=== PATIENT | female | born 1970 | race African-American/Black ===

== ENCOUNTER 2017-07-28 16:33 | Inpatient (IN) | payer MEDICAID, OTHER, SELFPAY ==
[2017-07-28 17:25] LABS: HEMATOCRIT 40.1 % (36.0-47.0); HEMOGLOBIN 14.1 g/dl (12.0-16.0); MEAN CORPUSCULAR HEMOGLOBIN 32.4 pg (27.0-33.0); MEAN CORPUSCULAR HGB CONC 35.2 g/dl (32.0-36.5); MEAN CORPUSCULAR VOLUME 92.2 fl (80.0-96.0); PLATELET COUNT, AUTOMATED 337 10^3/uL (150-450); RED BLOOD COUNT 4.35 10^6/uL (4.00-5.40); RED CELL DISTRIBUTION WIDTH 12.9 % (11.5-14.5); WHITE BLOOD COUNT 7.3 10^3/uL (4.0-10.0)
[2017-07-28] MEDS: HALOPERIDOL 5 MG/ML VIAL (J1630) IM (17:25)
[2017-07-28] MEDS: diphenhydrAMINE INJ 50MG/ML VIAL (J1200) IM (17:25)
[2017-07-28] MEDS: LORazepam 2 MG/ML VIAL (J2060) IM (17:25)
[2017-07-28 17:42] LABS: CONTROL LINE HCG INT CTR LINE PRESENT; HCG, SERUM QUALITATIVE NEGATIVE (NEGATIVE)
[2017-07-28 18:01] LABS: ALBUMIN 4.6 GM/DL (3.2-5.2); ALBUMIN/GLOBULIN RATIO 1.18 (1.00-1.93); ALKALINE PHOSPHATASE 56 U/L (45-117); ALT/SGPT 21 U/L (12-78); ANION GAP 14 MEQ/L (8-16); AST/SGOT 15 U/L (7-37); BILIRUBIN,DIRECT 0.2 MG/DL (0.0-0.2); BILIRUBIN,TOTAL 0.7 MG/DL (0.2-1.0); BLOOD UREA NITROGEN 7 MG/DL (7-18); CALCIUM LEVEL 10.2 MG/DL (8.5-10.1); CARBON DIOXIDE LEVEL 21 MEQ/L (21-32); CHLORIDE LEVEL 99 MEQ/L (98-107); CREATININE FOR GFR 0.85 MG/DL (0.55-1.30); ETHYL ALCOHOL (ETHANOL) < 0.003 % (0.000-0.010); GLOMERULAR FILTRATION RATE > 60.0 (>58); GLUCOSE, FASTING 120 MG/DL (70-100); POTASSIUM SERUM 4.1 MEQ/L (3.5-5.1); SALICYLATE LEVEL 3.5 MG/DL (5.0-30.0); SODIUM LEVEL 134 MEQ/L (136-145); TOTAL PROTEIN 8.5 GM/DL (6.4-8.2)
[2017-07-28 18:10] LABS: ACETAMINOPHEN LEVEL < 2.0 UG/ML (10.0-30.0)
[2017-07-28] MEDS: OLANZapine INTRAMUSCULAR 10 MG VIAL (S0166) IM (20:04)
[2017-07-28] MEDS ORDERED: MOM 30ML SUSPENSION UDC PO (23:30)
[2017-07-28] MEDS ORDERED: OLANZapine ORAL DISINTEGRATING TAB 5MG PO (23:30)
[2017-07-28] MEDS ORDERED: MAALOX 30 ML SUSP *UDC PO (23:30)
[2017-07-29] MEDS: ACETAMINOPHEN TAB 650MG DOSE (2X325MG) PO (09:07)
[2017-07-29] MEDS: traZODone 50 MG TAB PO (20:27)
[2017-07-30] MEDS: ACETAMINOPHEN TAB 650MG DOSE (2X325MG) PO (09:06)
[2017-07-30] MEDS: traZODone 50 MG TAB PO (23:33)
[2017-07-31] MEDS ORDERED: QUEtiapine FUMARATE 50 MG TAB PO (16:00)
[2017-08-01] MEDS ORDERED: ARIPiprazole 10 MG TAB NG (09:00)
== END 2017-07-31 15:30 | disposition home or self-care (01) | DRG 753 ==
LOC: M PSY 07-29 17:00 → M ED 16:33 → M ED INP 20:57 → M PSY 22:00
DX: F31.9 Bipolar disorder, unspecified (principal); Z79.899 Other long term (current) drug therapy; Z91.040 Latex allergy status

== ENCOUNTER → 2017-08-07 | Outpatient (REF) | payer MEDICAID ==
[2017-08-07 12:13] LABS: BASO # 0.1 10^3/uL (0.0-0.2); BASO % 1.5 % (0.0-1.0); EOS # 0.2 10^3/uL (0.0-0.50); EOS % 5.4 % (0.0-3.0); HEMATOCRIT 37.9 % (36.0-47.0); HEMOGLOBIN 12.4 g/dl (12.0-15.5); IMMATURE GRANULOCYTE % 0.2 % (0-3.0); LYMPH # 1.4 10^3/uL (1.5-4.5); LYMPH % 35.1 % (24.0-44.0); MEAN CORPUSCULAR HEMOGLOBIN 31.6 pg (27.0-33.0); MEAN CORPUSCULAR HGB CONC 32.7 g/dl (32.0-36.5); MEAN CORPUSCULAR VOLUME 96.4 fl (80.0-96.0); MONO # 0.3 10^3/uL (0.0-0.8); MONO % 6.9 % (0.0-5.0); NEUTROPHILS # 2.1 10^3/uL (1.8-7.7); NEUTROPHILS % 50.9 % (36.0-66.0); PLATELET COUNT, AUTOMATED 323 10^3/uL (150-450); RED BLOOD COUNT 3.93 10^6/uL (4.00-5.40); RED CELL DISTRIBUTION WIDTH 13.1 % (11.5-14.5); WHITE BLOOD COUNT 4.1 10^3/uL (4.0-10.0)
[2017-08-07 12:43] LABS: ALBUMIN/GLOBULIN RATIO 1.29 (1.00-1.93); ALKALINE PHOSPHATASE 46 U/L (45-117); ALT/SGPT 14 U/L (12-78); ANION GAP 7 MEQ/L (8-16); AST/SGOT 14 U/L (7-37); BILIRUBIN,TOTAL 0.7 MG/DL (0.2-1.0); BLOOD UREA NITROGEN 11 MG/DL (7-18); CALCIUM LEVEL 9.2 MG/DL (8.5-10.1); CARBON DIOXIDE LEVEL 27 MEQ/L (21-32); CHLORIDE LEVEL 105 MEQ/L (98-107); CHOLESTEROL LEVEL 245 MG/DL (<200); CREATININE FOR GFR 0.83 MG/DL (0.55-1.30); FERRITIN 32 NG/ML (8-252); GLOMERULAR FILTRATION RATE > 60.0 (>58); GLUCOSE, FASTING 80 MG/DL (70-100); HDL CHOLESTEROL 74 MG/DL (>40); IRON (FE) 95 UG/DL (50-170); NON-HDL-C 171 MG/DL; PERCENT SATURATION 33.7 % (13.2-45.0); POTASSIUM SERUM 4.3 MEQ/L (3.5-5.1); SODIUM LEVEL 139 MEQ/L (136-145); TOTAL IRON BINDING CAPACITY 282 UG/DL (250-450); TOTAL PROTEIN 7.1 GM/DL (6.4-8.2); TRIGLYCERIDES LEVEL 60 MG/DL (<150)
[2017-08-08 11:06] LABS: HEPATITIS B SURFACE ANTIGEN NEGATIVE (NEGATIVE)
[2017-08-08 11:21] LABS: HEPATITIS C VIRUS ABY INDEX < 0.0 INDEX (<0.8)
[2017-08-08 11:22] LABS: HIV 1&2 SCREEN CENTAUR NEGATIVE (NEGATIVE)
[2017-08-08 11:33] LABS: HEPATITIS B SURFACE ANTIBODY NEGATIVE (POSITIVE)
== END ==
LOC: M SFHCPLAZ 08:25
DX: D50.0 Iron deficiency anemia secondary to blood loss (chronic) (principal); Z13.220 Encounter for screening for lipoid disorders; F31.9 Bipolar disorder, unspecified; Z72.51 High risk heterosexual behavior

== ENCOUNTER → 2017-08-07 | Outpatient (CLI) | payer MEDICAID | LOC: M WHC 13:25 | DX: Z12.31 Encounter for screening mammogram for malignant neoplasm of breast (principal) ==

== ENCOUNTER → 2017-08-25 | Outpatient (REF) | payer MEDICAID ==
[2017-08-25 11:44] LABS: CHOLESTEROL LEVEL 261 MG/DL (<200); HDL CHOLESTEROL 97 MG/DL (>40); LDL CHOLESTEROL 147.2 MG/DL (<100); NON-HDL-C 164 MG/DL; TRIGLYCERIDES LEVEL 84 MG/DL (<150)
== END ==
LOC: M SFHCPLAZ 08:42
DX: Z13.220 Encounter for screening for lipoid disorders (principal)

== ENCOUNTER → 2017-10-28 | Outpatient (REF) | payer OTHER ==
[2017-10-28 10:28] LABS: BASO % 0.5 % (0.0-1.0); EOS # 0.3 10^3/uL (0.0-0.50); EOS % 3.6 % (0.0-3.0); HEMOGLOBIN 12.5 g/dl (12.0-15.5); IMMATURE GRANULOCYTE % 0.5 % (0-3.0); LYMPH # 1.5 10^3/uL (1.5-4.5); LYMPH % 20.5 % (24.0-44.0); MEAN CORPUSCULAR HEMOGLOBIN 31.8 pg (27.0-33.0); MEAN CORPUSCULAR HGB CONC 32.9 g/dl (32.0-36.5); MEAN CORPUSCULAR VOLUME 96.7 fl (80.0-96.0); MONO # 0.6 10^3/uL (0.0-0.8); MONO % 7.4 % (0.0-5.0); NEUTROPHILS # 5.1 10^3/uL (1.8-7.7); NEUTROPHILS % 67.5 % (36.0-66.0); PLATELET COUNT, AUTOMATED 312 10^3/uL (150-450); RED BLOOD COUNT 3.93 10^6/uL (4.00-5.40); RED CELL DISTRIBUTION WIDTH 12.6 % (11.5-14.5); WHITE BLOOD COUNT 7.5 10^3/uL (4.0-10.0)
[2017-10-28 11:47] LABS: ALBUMIN 3.7 GM/DL (3.2-5.2); ALBUMIN/GLOBULIN RATIO 1.03 (1.00-1.93); ALKALINE PHOSPHATASE 55 U/L (45-117); ALT/SGPT 18 U/L (12-78); ANION GAP 9 MEQ/L (8-16); AST/SGOT 9 U/L (7-37); BILIRUBIN,TOTAL 0.5 MG/DL (0.2-1.0); BLOOD UREA NITROGEN 19 MG/DL (7-18); C REACTIVE PROTEIN QUANTITATIV < 0.30 MG/DL (0.00-0.30); CALCIUM LEVEL 9.1 MG/DL (8.5-10.1); CARBON DIOXIDE LEVEL 28 MEQ/L (21-32); CHLORIDE LEVEL 102 MEQ/L (98-107); CREATININE FOR GFR 0.75 MG/DL (0.55-1.30); FERRITIN 22 NG/ML (8-252); GLOMERULAR FILTRATION RATE > 60.0 (>58); GLUCOSE, FASTING 81 MG/DL (70-100); IRON (FE) 61 UG/DL (50-170); PERCENT SATURATION 17.9 % (13.2-45.0); POTASSIUM SERUM 4.4 MEQ/L (3.5-5.1); SODIUM LEVEL 139 MEQ/L (136-145); TOTAL IRON BINDING CAPACITY 340 UG/DL (250-450); TOTAL PROTEIN 7.3 GM/DL (6.4-8.2)
== END ==
LOC: M SFHCPLAZ 09:32
DX: N94.6 Dysmenorrhea, unspecified (principal); R10.31 Right lower quadrant pain

== ENCOUNTER → 2017-11-18 | Outpatient (CLI) | payer OTHER | LOC: M RAD 16:48 | DX: D25.2 Subserosal leiomyoma of uterus (principal) | CPT/HCPCS: 76856 ==

== ENCOUNTER 2018-04-08 01:44 | Emergency (ER) | payer OTHER ==
[2018-04-08] MEDS: HALOPERIDOL 5 MG TAB PO (05:12)
== END 2018-04-08 05:15 | disposition home or self-care (01) ==
LOC: M ED 01:44
DX: F31.9 Bipolar disorder, unspecified (principal); Z91.040 Latex allergy status
CPT/HCPCS: 99284

== ENCOUNTER → 2018-04-09 | Outpatient (CLI) | payer OTHER | LOC: M SMT 09:25 | DX: M25.78 Osteophyte, vertebrae (principal); M54.2 Cervicalgia | CPT/HCPCS: 72052 ==

== ENCOUNTER → 2018-04-29 | Outpatient (REF) | payer OTHER ==
[~2018-04-29] MED LIST: ARIP10TAB NG; HALO5TA PO; QUET5TAB PO; SLEE1TAB PO; VIST50CA PO
[2018-05-01 14:14] LABS: CREATININE, URINE 173.4 mg/dL (20.0-300.0)
== END ==
LOC: M SFHCPLAZ 13:37
PROVIDERS: ATTEND Physician Assistant Medical
DX: F31.9 Bipolar disorder, unspecified (principal)

== ENCOUNTER → 2018-05-01 | Outpatient (REF) | payer OTHER ==
[2018-05-01 15:45] LABS: BASO # 0.1 10^3/uL (0.0-0.2); BASO % 0.7 % (0.0-1.0); EOS # 0.2 10^3/uL (0.0-0.50); EOS % 2.2 % (0.0-3.0); HEMATOCRIT 40.2 % (36.0-47.0); HEMOGLOBIN 13.5 g/dl (12.0-15.5); LYMPH # 2.1 10^3/uL (1.5-4.5); MEAN CORPUSCULAR HEMOGLOBIN 31.8 pg (27.0-33.0); MEAN CORPUSCULAR HGB CONC 33.6 g/dl (32.0-36.5); MEAN CORPUSCULAR VOLUME 94.6 fl (80.0-96.0); MONO # 0.4 10^3/uL (0.0-0.8); NEUTROPHILS # 4.2 10^3/uL (1.8-7.7); NEUTROPHILS % 60.8 % (36.0-66.0); PLATELET COUNT, AUTOMATED 339 10^3/uL (150-450); RED BLOOD COUNT 4.25 10^6/uL (4.00-5.40); WHITE BLOOD COUNT 6.9 10^3/uL (4.0-10.0)
[2018-05-01 15:51] LABS: ALT/SGPT 23 U/L (12-78); BILIRUBIN,TOTAL 0.8 MG/DL (0.2-1.0); BLOOD UREA NITROGEN 10 MG/DL (7-18); CALCIUM LEVEL 9.8 MG/DL (8.5-10.1); CARBON DIOXIDE LEVEL 25 MEQ/L (21-32); CHLORIDE LEVEL 102 MEQ/L (98-107); GLOMERULAR FILTRATION RATE > 60.0 (>58); GLUCOSE, FASTING 89 MG/DL (70-100); POTASSIUM SERUM 4.3 MEQ/L (3.5-5.1); SODIUM LEVEL 137 MEQ/L (136-145); TOTAL PROTEIN 7.6 GM/DL (6.4-8.2)
[2018-05-08 14:14] LABS: CREATININE, URINE 17.1 mg/dL (20.0-300.0); SEROTONIN QUANTITATIVE LEVEL 143 ng/mL (0-420)
== END ==
LOC: M SFHCPLAZ 12:57
PROVIDERS: ATTEND Physician Assistant Medical
DX: F31.9 Bipolar disorder, unspecified (principal)

== ENCOUNTER 2018-07-17 13:15 | Outpatient (RCR) | payer OTHER | END 2018-08-09 | LOC: M PT 13:15 | PROVIDERS: ATTEND Physician Assistant Medical | DX: M54.2 Cervicalgia (principal); R51 Headache ==

== ENCOUNTER → 2018-08-10 | Outpatient (CLI) | payer OTHER ==
[~2018-08-10] MED LIST changes: -ARIP10TAB NG; +ARIP1TAB NG
--- NOTE | 2018-08-10 15:17 | REPMRS ---
Patient History The patient states she has not had a clinical breast exam in over a year. No known family history of cancer. 3D TOMOSYNTHESIS WAS PERFORMED. Digital Woman Screen Mammo: August 10, 2018 - Exam #: [id number] Bilateral CC and MLO view(s) were taken. Technologist: Pratibha Jarqiun, Technologist Prior study comparison: August 07, 2017, digital woman screen mammo performed at [facility]. FINDINGS: The breast tissue is extremely dense which could obscure a lesion on mammography. There is no evidence of cancer on this mammogram. No significant changes when compared with prior studies. Assessment: BI-RADS/ACR category 2 mammogram. Benign Findings. Recommendation Routine screening mammogram in 1 year (for women over age 40). This mammogram was interpreted with the aid of an FDA-approved computer-aided dectection system. Electronically Signed By: Albaro Tanner MD 08/10/18 1616
== END ==
LOC: M WHC 14:08
PROVIDERS: ATTEND Physician Assistant Medical
DX: Z12.31 Encounter for screening mammogram for malignant neoplasm of breast (principal)

== ENCOUNTER → 2018-10-15 | Outpatient (CLI) | payer OTHER ==
--- NOTE | 2018-10-16 03:56 | REP ---
Clinical: Fibroid . Comparison: 11/18/2017 Technique: Transabdominal pelvic ultrasound followed by transvaginal examination for better evaluation of the endometrium and adnexa with color Doppler evaluation of the ovaries. Findings: Bladder is collapsed. Heterogeneous myomatous uterus measures 8.1 x 4.7 x 5.6 cm with pedunculated fundal fibroid measuring 11.0 x 6.2 x 8.0 cm as well as to posterior intramural / subserosal fibroids measuring 3.3 x 1.7 x 2.5 cm and 1.9 x 1.0 x 1.7 cm . The endometrial complex measures 11.0 mm thickness. No discrete uterine or endometrial abnormalities are appreciated. Bilateral ovaries are normal in vascularity without evidence for torsion. Right ovary measures 5.1 x 4.0 x 4.7 cm with 3.6 x 2.9 x 4.1 cm complex cyst possibly hemorrhagic ; R I = 0.68 . Left ovary measures 3.0 x 1.9 x 2.3 cm ; R I = 0.65 . No pelvic free fluid . Impression: 1. Myomatous uterus including 11 cm pedunculated fibroid. 2. Complex likely hemorrhagic cyst in the right ovary. No torsion. This may or may not represent the same complex cyst noted on prior examination. 4-6 week reevaluation and follow-up may be warranted. Electronically Signed by Kole Godfrey MD 10/16/2018 03:47 A
== END ==
LOC: M RAD 12:00
PROVIDERS: ATTEND Specialist
DX: D25.2 Subserosal leiomyoma of uterus (principal); N83.201 Unspecified ovarian cyst, right side

== ENCOUNTER 2018-10-23 01:42 | Emergency (ER) | payer OTHER ==
[~2018-10-23] VITALS: Ht 165.1 cm; Wt 65.9 kg
[2018-10-23] MEDS ORDERED: SERO50TA PO (01:48)
[2018-10-23] MEDS ORDERED: chlorproMAZINE 25 MG TAB (Q0161) PO ONE (04:30)
[2018-10-23 04:44] VITALS: BP 150/73
[2018-10-23] MEDS ORDERED: HYDR50TA70 PO (10:51)
[2018-10-23] MEDS ORDERED: REME15TA2 PO (15:50)
== END 2018-10-23 04:45 | disposition home or self-care (01) ==
LOC: M ED 01:42
DX: F31.9 Bipolar disorder, unspecified (principal); Z91.040 Latex allergy status; Z79.899 Other long term (current) drug therapy
CPT/HCPCS: 99284; Q0161

== ENCOUNTER 2018-10-23 10:27 | Emergency (ER) | payer OTHER ==
[~2018-10-23] VITALS: Ht 165.1 cm; Wt 68.2 kg
[~2018-10-23 10:27] MED LIST changes: +SERO50TA PO
[2018-10-23] MEDS ORDERED: HYDR50TA70 PO (10:51)
[2018-10-23 11:10] LABS: HEMATOCRIT 40.8 % (36.0-47.0); HEMOGLOBIN 13.6 g/dl (12.0-15.5); MEAN CORPUSCULAR HEMOGLOBIN 31.9 pg (27.0-33.0); MEAN CORPUSCULAR HGB CONC 33.3 g/dl (32.0-36.5); MEAN CORPUSCULAR VOLUME 95.8 fl (80.0-96.0); PLATELET COUNT, AUTOMATED 331 10^3/uL (150-450); RED BLOOD COUNT 4.26 10^6/uL (4.00-5.40); WHITE BLOOD COUNT 6.9 10^3/uL (4.0-10.0)
[2018-10-23 11:30] LABS: HCG, SERUM QUALITATIVE NEGATIVE (NEGATIVE)
[2018-10-23 11:39] LABS: ACETAMINOPHEN LEVEL < 2.0 UG/ML (10.0-30.0); ALBUMIN 4.2 GM/DL (3.2-5.2); ALT/SGPT 29 U/L (12-78); BILIRUBIN,DIRECT < 0.1 MG/DL (0.0-0.2); BILIRUBIN,TOTAL 0.2 MG/DL (0.2-1.0); BLOOD UREA NITROGEN 13 MG/DL (7-18); CALCIUM LEVEL 9.5 MG/DL (8.5-10.1); CARBON DIOXIDE LEVEL 28 MEQ/L (21-32); CHLORIDE LEVEL 105 MEQ/L (98-107); CREATININE FOR GFR 0.82 MG/DL (0.55-1.30); ETHYL ALCOHOL (ETHANOL) < 0.003 % (0.000-0.010); GLOMERULAR FILTRATION RATE > 60.0 (>58); GLUCOSE, FASTING 98 MG/DL (70-100); POTASSIUM SERUM 4.2 MEQ/L (3.5-5.1); SALICYLATE LEVEL < 1.7 MG/DL (5.0-30.0); SODIUM LEVEL 138 MEQ/L (136-145); TOTAL PROTEIN 8.1 GM/DL (6.4-8.2)
[2018-10-23 12:04] LABS: AMPHETAMINES LEVEL URINE NEGATIVE (NEGATIVE); BARBITURATES URINE NEGATIVE (NEGATIVE); BENZODIAZEPINES URINE NEGATIVE (NEGATIVE); CANNABINOIDS URINE NEGATIVE (NEGATIVE); COCAINE METABOLITE URINE NEGATIVE (NEGATIVE); METHADONE URINE NEGATIVE (NEGATIVE); OPIATES URINE NEGATIVE (NEGATIVE); PHENCYCLIDINE URINE NEGATIVE (NEGATIVE)
[2018-10-23] MEDS ORDERED: REME15TA2 PO (15:50)
[2018-10-23 16:00] VITALS: BP 150/90
== END 2018-10-23 16:02 | disposition home or self-care (01) ==
LOC: M ED 10:27
DX: R44.0 Auditory hallucinations (principal); G47.00 Insomnia, unspecified; F31.9 Bipolar disorder, unspecified; Z91.040 Latex allergy status; Z79.899 Other long term (current) drug therapy
CPT/HCPCS: 36415; 80048; 80076; 80307; 84443; 84703; 85027; 99284; G0480